=== PATIENT | male | born 1980 | race African-American/Black ===

== ENCOUNTER 2017-12-12 05:01 | Emergency (ER) | payer SELFPAY ==
[~2017-12-12] VITALS: Ht 167.6 cm; Wt 77.1 kg
[~2017-12-12 05:01] MED LIST: AUGMENTIN 875 M1 TAB PO; CIPRO500 MG PO; CLARITIN10 MG PO; DOXYCYCLINE MO100 MG PO; FLAGYL500 MG PO; ZITHROMAX250 MG PO
== END 2017-12-12 05:24 | disposition home or self-care (01) ==
LOC: ED 05:01
DX: Z11.3 Encounter for screening for infections with a predominantly sexual mode of transmission (principal)

== ENCOUNTER 2023-04-26 05:32 | Emergency (ER) | payer OTHER ==
[~2023-04-26] VITALS: Ht 172.7 cm; Wt 90.7 kg
[~2023-04-26 05:32] MED LIST changes: +ASPIRIN CHEWABL81 M1 PO; +AVPAK AZITHROM250 M1 PO; +DILTIAZEM 24HR120 MG PO; +Ipratropium Brom3 ML NEB; +MUCINEX ER600 MG PO; +PREDNISONE10 MG PO
[2023-04-26 06:08] LABS: BILIRUBIN Negative (Negative); BLOOD Negative (Negative); CLARITY Cloudy (Clear); COLOR Yellow (Yellow); GLUCOSE Negative (Negative); KETONE Negative (Negative); LEUKO ESTERASE Negative (Negative); NITRITE Negative (Negative); PH 5.5 (4.5-8.0); SPECIFIC GRAVITY 1.015 (1.001-1.030)
[2023-04-26 06:20] LABS: RBC 0-2 rbc/hpf (0-2)
[2023-04-26 06:21] LABS: BACTERIA TRACE; EPITHELIAL CELLS 0-2; MUCOUS 2+
[2023-04-26 06:47] LABS: BASO % 0.3 % (0.0-1.0); EOS # 0.2 10*3/uL (0.0-0.4); EOS % 3.4 % (1.0-4.0); HEMATOCRIT 46.6 % (42.0-52.0); LYMPH # 2.1 10*3/uL (1.3-4.4); LYMPH % 33.7 % (27.0-41.0); MEAN CELL VOLUME 86.6 fl (80.0-94.0); MEAN CORPUSCULAR HGB 29.7 pg (27.0-31.0); MEAN CORPUSCULAR HGB CONC 34.3 g/dl (33.0-37.0); MEAN PLATELET VOLUME 9.9 fl (9.6-12.3); MONO # 0.5 10*3/uL (0.1-1.0); MONO % 8.6 % (3.0-9.0); NEUT # 3.3 10*3/uL (2.3-7.9); NEUT % 53.8 % (47.0-73.0); PLATELET COUNT AUTOMATED 306 10*3/uL (130-400); RED BLOOD COUNT 5.38 10*6/uL (4.50-5.90); RED CELL DISTRI WIDTH 14.1 % (0-14.5); WHITE BLOOD COUNT 6.2 10*3/uL (4.8-10.8)
[2023-04-26 07:08] LABS: ALKALINE PHOSPHATASE 72 U/L (46-116); BUN 7 mg/dl (9-23); CHLORIDE 100 mmol/L (98-107); SGPT/ALT 26 U/L (10-49); TOTAL PROTEIN 6.9 gm/dL (6.0-8.0)
== END 2023-04-26 07:39 | disposition home or self-care (01) ==
LOC: ED 05:32
PROVIDERS: Emergency Medicine
DX: R10.9 Unspecified abdominal pain (principal); R73.9 Hyperglycemia, unspecified; F17.200 Nicotine dependence, unspecified, uncomplicated; Z79.2 Long term (current) use of antibiotics; Z79.899 Other long term (current) drug therapy; Z79.82 Long term (current) use of aspirin

== ENCOUNTER 2023-11-02 09:08 | Emergency (ER) | payer OTHER ==
[~2023-11-02] VITALS: Ht 167.6 cm; Wt 90.7 kg
[2023-11-02] MEDS ORDERED: AZITHROMYCIN 250 MG TAB PO ONE (09:25)
[2023-11-02 10:02] LABS: BILIRUBIN Negative (Negative); BLOOD Negative (Negative); CLARITY Clear (Clear); COLOR Yellow (Yellow); GLUCOSE Negative (Negative); KETONE Negative (Negative); LEUKO ESTERASE Negative (Negative); NITRITE Negative (Negative); SPECIFIC GRAVITY 1.015 (1.001-1.030); UROBILINOGEN 0.2 E.U./dl (0.0-1.0)
[2023-11-02 10:12] LABS: HYALINE CAST 0-2; RBC 0-2 rbc/hpf (0-2)
== END 2023-11-02 10:13 | disposition home or self-care (01) ==
LOC: ED 09:08
PROVIDERS: Internal Medicine
DX: Z20.2 Contact with and (suspected) exposure to infections with a predominantly sexual mode of transmission (principal); F17.210 Nicotine dependence, cigarettes, uncomplicated; Z79.2 Long term (current) use of antibiotics; Z79.899 Other long term (current) drug therapy; Z79.82 Long term (current) use of aspirin

== ENCOUNTER 2024-06-09 20:49 | Emergency (ER) | payer OTHER ==
[~2024-06-09] VITALS: Ht 175.2 cm; Wt 81.6 kg
[2024-06-09] MEDS ORDERED: PREDNISONE20 M1 PO (23:15)
[2024-06-09] MEDS ORDERED: AVPAK AZITHROM250 M1 PO (23:15)
[2024-06-09] MEDS ORDERED: methylPREDNISolone sod succ 125 MG VIAL IM ONE (23:20)
[2024-06-09] MEDS ORDERED: AZITHROMYCIN 250 MG TAB PO ONE (23:20)
== END 2024-06-09 23:18 | disposition home or self-care (01) ==
LOC: ED 20:49
DX: J45.909 Unspecified asthma, uncomplicated (principal); Z20.822 Contact with and (suspected) exposure to COVID-19; F17.210 Nicotine dependence, cigarettes, uncomplicated

== ENCOUNTER 2024-08-27 16:54 | Emergency (ER) | payer OTHER ==
[~2024-08-27] VITALS: Ht 167.6 cm; Wt 90.7 kg
[~2024-08-27 16:54] MED LIST changes: +PREDNISONE20 M1 PO
== END 2024-08-27 17:42 | disposition home or self-care (01) ==
LOC: ED 16:54
DX: H20.12 Chronic iridocyclitis, left eye (principal); J45.909 Unspecified asthma, uncomplicated; F17.210 Nicotine dependence, cigarettes, uncomplicated; Z79.899 Other long term (current) drug therapy; Z79.82 Long term (current) use of aspirin